=== PATIENT | female | born 1950 | race Caucasian/White ===

== ENCOUNTER → 2017-03-15 | Outpatient (CLI) | payer BC ==
--- NOTE | 2017-03-17 09:15 | XR ---
EXAMINATION TYPE: XR toes RT DATE OF EXAM: 03/15/2017 COMPARISON: NONE HISTORY: Redness and swelling TECHNIQUE: 2 views of the right toes are submitted FINDINGS: There is arthropathy of the DIP and MTP joints of all digits. No erosive changes. Osseous s tructures intact. Soft tissue edema noted. IMPRESSION: 1. Arthropathy with no acute fracture or destructive change. If there is concern for osteomyelitis co rrelate with bone scan.
== END | disposition home or self-care (01) ==
LOC: RADXRYALE 15:42
PROVIDERS: ATTEND Family Medicine
DX: M79.671 Pain in right foot (principal); M79.674 Pain in right toe(s)